=== PATIENT | male | born 1960 | race Caucasian/White ===

== ENCOUNTER 2017-05-02 19:24 | Emergency (ER) | payer OTHER ==
[~2017-05-02] VITALS: Ht 180.3 cm; Wt 95.5 kg
[~2017-05-02 19:24] MED LIST: AZULFIDINE500 MG/TAB PO; COUMADIN 3MG3 MG/TAB; COUMADIN 3MG3 MG/TAB PO; COUMADIN4 MG PO; COZAAR100 MG PO; LIALDA 1.2 GM1.2 GM PO; NO HOME MEDICATIONS; NORCO 325 MG-7.1 TAB PO; SULFAZINE EC500 MG PO
[2017-05-02 19:34] VITALS: TEMP 99.2
[2017-05-02] MEDS ORDERED: CELEXA40 MG PO (19:38)
[2017-05-02] MEDS ORDERED: AMBIEN 5MG TABLE5 MG PO (19:38)
[2017-05-02] MEDS ORDERED: XARELTO20 MG PO (19:38)
[2017-05-02] MEDS ORDERED: LIPITOR 10MG10 MG PO (19:38)
[2017-05-02 22:33] LABS: BASO # 0.1 (0.0-0.2); BASO % 0.8 % (0.0-2.0); EOS # 0.2 (0.0-0.7); EOS % 2.2 % (0-4.0); GRAN # 4.9 (1.4-6.5); GRAN % 61.9 % (42.2-75.2); HEMATOCRIT 42.5 % (42.0-52.0); HEMOGLOBIN 15.2 g/dl (13.5-18.0); LYMPH # 1.7 (1.2-3.4); MEAN CELL VOLUME 90 fl (80.0-100.0); MEAN CORPUSCULAR HEMOGLOBIN 32 pg (27.0-31.0); MEAN CORPUSCULAR HGB CONC 36 g/dl (33.0-37.0); MEAN PLATELET VOLUME 10.6 fl (7.4-10.4); MONO % 12.2 % (1.7-9.3); PLATELET COUNT 225 K/mm3 (130-400); RED BLOOD COUNT 4.72 M/mm3 (4.20-5.60); WHITE BLOOD COUNT 7.9 K/mm3 (4.8-10.8)
[2017-05-02 22:36] LABS: INR 1.4 (0.8-3.0); PROTHROMBIN TIME 15.9 SECONDS (9.7-12.8)
[2017-05-02 22:38] LABS: PARTIAL THROMBOPLASTIN TIME 35.3 SECONDS (26.0-37.0)
[2017-05-02 23:15] LABS: ADJUSTED CALCIUM 9.3 mg/dL (8.4-10.2); ALBUMIN 4.4 gm/dL (3.5-5.0); BILIRUBIN,TOTAL 1.6 mg/dL (0.0-1.0); CALCIUM 9.6 mg/dL (8.4-10.2); CREATININE, serum 1.16 mg/dL (0.66-1.25); POTASSIUM 3.4 mmol/L (3.4-5.0)
[2017-05-02 23:16] LABS: COLLECTION METHOD CLEAN CATCH
[2017-05-02 23:29] LABS: MUCOUS Present /lpf; PH 5 (5-8); SQUAMOUS EPITHELIAL None Seen /hpf; URINE APPEARANCE Clear; URINE BACTERIA None Seen /hpf; URINE BILIRUBIN Negative (NEGATIVE); URINE BLOOD 1+ (NEGATIVE); URINE COLOR Yellow; URINE GLUCOSE Negative (NEGATIVE); URINE KETONE Negative (NEGATIVE); URINE LEUKOCYTE ESTERASE Negative (NEGATIVE); URINE PROTEIN(semi-quant) Negative (NEGATIVE); URINE RBC 0-2 /hpf; URINE UROBILINOGEN Negative (NEGATIVE); URINE WBC 0-2 /hpf
[2017-05-02] MEDS ORDERED: ZOFRAN 4MG T4 MG/TAB PO (23:57)
[2017-05-02] MEDS ORDERED: NORCO 325 MG-51 TAB PO (23:57)
[2017-05-02] MEDS ORDERED: CIPRO 500MG TA500 MG PO (23:57)
[2017-05-02] MEDS ORDERED: FLAGYL500 MG PO (23:57)
[2017-05-03 00:30] VITALS: BP 136/61; PULSE 77
== END 2017-05-03 00:32 | disposition home or self-care (01) ==
LOC: COL.ER 19:24
PROVIDERS: Emergency Medicine
DX: K52.9 Noninfective gastroenteritis and colitis, unspecified (principal); I10 Essential (primary) hypertension; E78.5 Hyperlipidemia, unspecified; Z86.711 Personal history of pulmonary embolism; Z86.718 Personal history of other venous thrombosis and embolism; Z98.890 Other specified postprocedural states; Z79.01 Long term (current) use of anticoagulants
CPT/HCPCS: J2765; J3010; J7030; Q9967

== ENCOUNTER → 2018-09-09 | Outpatient (CLI) | payer OTHER ==
[~2018-09-09] MED LIST changes: +AMBIEN 5MG TABLE5 MG PO; +CELEXA40 MG PO; +CIPRO 500MG TA500 MG PO; +FLAGYL500 MG PO; +LIPITOR 10MG10 MG PO; +NORCO 325 MG-51 TAB PO; +XARELTO20 MG PO; +ZOFRAN 4MG T4 MG/TAB PO
== END ==
LOC: COL.RAD 08:26
DX: S46.212A Strain of muscle, fascia and tendon of other parts of biceps, left arm, initial encounter (principal); M19.012 Primary osteoarthritis, left shoulder; M75.112 Incomplete rotator cuff tear or rupture of left shoulder, not specified as traumatic

== ENCOUNTER → 2018-11-09 | Outpatient (CLI) | payer OTHER | LOC: COL.RAD 14:15 | DX: R04.2 Hemoptysis (principal) | CPT/HCPCS: Q9967 ==

== ENCOUNTER 2019-08-17 13:08 | Observation (INO) | payer OTHER ==
[~2019-08-17] VITALS: Ht 177.8 cm; Wt 106.9 kg
[2019-08-17 13:54] LABS: BASO % 0.3 % (0.0-2.0); EOS # 0.1 (0.0-0.7); EOS % 0.9 % (0-4.0); GRAN # 5.4 (1.4-6.5); GRAN % 58.6 % (42.2-75.2); HEMATOCRIT 44.8 % (42.0-52.0); HEMOGLOBIN 15.6 g/dl (13.5-18.0); LYMPH # 2.9 (1.2-3.4); LYMPH % 30.9 % (20.0-51.0); MEAN CELL VOLUME 90 fl (80.0-100.0); MEAN CORPUSCULAR HEMOGLOBIN 31 pg (27.0-31.0); MEAN CORPUSCULAR HGB CONC 35 g/dl (33.0-37.0); MEAN PLATELET VOLUME 10.5 fl (7.4-10.4); MONO # 0.8 (0.1-0.6); MONO % 8.9 % (1.7-9.3); PLATELET COUNT 241 K/mm3 (130-400); RED BLOOD COUNT 4.99 M/mm3 (4.20-5.60); REDCELL DISTRIBUTION WIDTH-CV 12.1 % (11.5-14.5)
[2019-08-17 14:02] LABS: ALBUMIN 5.1 gm/dL (3.5-5.0); BILIRUBIN,TOTAL 2.3 mg/dL (0.0-1.0); CALCIUM 9.9 mg/dL (8.4-10.2); CREATININE, serum 1.5 (0.66-1.25); TOTAL PROTEIN 8.8 gm/dL (6.4-8.2)
[2019-08-17 15:26] LABS: COLLECTION METHOD CLEAN CATCH
[2019-08-17 15:46] LABS: MUCOUS Present /lpf; PH 5 (5-8); SQUAMOUS EPITHELIAL 0-2 /hpf; URINE APPEARANCE Cloudy; URINE BACTERIA Rare /hpf; URINE BILIRUBIN Negative (NEGATIVE); URINE BLOOD 3+ (NEGATIVE); URINE COLOR Yellow; URINE GLUCOSE Negative (NEGATIVE); URINE KETONE Negative (NEGATIVE); URINE LEUKOCYTE ESTERASE Negative (NEGATIVE); URINE NITRATE Negative (NEGATIVE); URINE PROTEIN(semi-quant) 1+ (NEGATIVE); URINE UROBILINOGEN Negative (NEGATIVE)
[2019-08-17 15:55] LABS: URINE RBC >50 /hpf
[2019-08-17 17:39] VITALS: BP 135/79; PULSE 66; TEMP 98.4
[2019-08-17] MEDS ORDERED: BRINTELLIX20 (17:47)
[2019-08-17] MEDS ORDERED: LOSARTAN POTASSIUM/H (17:49)
[2019-08-17] MEDS ORDERED: XANAX 1MG1 MG PO (17:50)
[2019-08-17] MEDS ORDERED: ZYPREXA 5MG5 MG PO (17:50)
--- NOTE | 2019-08-17 19:08 | NUR ---
REPORT TO ANGEL SMITH.
[2019-08-17 20:02] VITALS: BP 120/76; PULSE 57; TEMP 98.2
[2019-08-17] MEDS ORDERED: HYZAAR 25 MG-101 TAB PO (22:22)
[2019-08-17] MEDS ORDERED: ZYPREXA ZYD10 MG/TAB PO (22:51)
[2019-08-18] VITALS (10 sets, daily range): BP systolic 92–154; BP diastolic 51–93; PULSE 55–87; TEMP 98.1–98.8
--- NOTE | 2019-08-18 07:50 | NUR ---
Patient up, independent in room. rounded. We discussed lab results from yesterday. K+ replaced & toradol on hold per kidney function. Patient remains Npo, he denies nausea. Potential to go to the [facility] this [facility]. Currently patient reports minimal pain. Will monitor.
--- NOTE | 2019-08-18 09:57 | NUR ---
CRISTÓBAL met with the patient and his two children to discuss discharge plan. The patient lives in [place] with his , Marian ([id number]#[phone]), and their two children. He reports independence with ADLs and does not have any DME. The patient's PCP is Dr. Nina Carrizales and he receives his medications at [facility]. He reports no difficulties obtaining his meds. The patient was not sure if he has advanced directives completed, but he was interested in obtaining a form for DPOA-HC. CRISTÓBAL provided. The patient states that if he does have them completed, that his is his DPOA-HC. The patient plans to return home with his family upon discharge. No additional needs at this time.
--- NOTE | 2019-08-18 10:10 | NUR ---
Patient continues to deny pain. working on his laptop. Remains npo, denies nausea
--- NOTE | 2019-08-18 11:58 | NUR ---
First visit from the fixer boarding room. [employer] prayed with patient and family. No needs right now.
--- NOTE | 2019-08-18 12:28 | NUR ---
Initial visit; Patient thanked Pharmacy Consultant for offering spiritual care, especially encouragement and prayer.
--- NOTE | 2019-08-18 14:00 | NUR ---
rounded. Consent obtained. Ivf to gravity. Patient to [facility]
--- NOTE | 2019-08-18 17:48 | NUR ---
Patient has returned from the [facility]. Ready for discharge. He has voided, blood tinged urine. Tolerated dinner tray. Vitals stable. Will work on dischare paperwork
--- NOTE | 2019-08-18 18:04 | NUR ---
Patient ready for discharge. All discharge paperwork reviewed. Home medication list reviewed. He is aware of the importance of calling for a follow up appt for stent removal. Iv Dc. He tolerated dinner. Voided. Will be wheeled out with all belongigns, his to take him home.
== END 2019-08-18 18:06 | disposition home or self-care (01) ==
LOC: COL.ER 13:08 → SURG 16:18
PROVIDERS: Nurse Practitioner; ADMIT Urology
DX: N20.1 Calculus of ureter (principal); E87.6 Hypokalemia; E11.9 Type 2 diabetes mellitus without complications; I10 Essential (primary) hypertension; G47.33 Obstructive sleep apnea (adult) (pediatric); Z86.718 Personal history of other venous thrombosis and embolism; Z79.899 Other long term (current) drug therapy; Z79.01 Long term (current) use of anticoagulants; Z88.8 Allergy status to other drugs, medicaments and biological substances; Z87.442 Personal history of urinary calculi
CPT/HCPCS: A4216; C1769; C2617; G0378; J0360; J0696; J1170; J1885; J1940; J2175; J2250; J2405; J2704; J3010; J3480; J7030; Q9967

== ENCOUNTER → 2020-11-13 | Outpatient (CLI) | payer BC ==
[~2020-11-13] MED LIST changes: +AMOXICILLIN 8751 TAB PO; +ASACOL HD800 MG PO; +BRINTELLIX20; +DESYREL 100MG100 MG PO; +HYZAAR 25 MG-101 TAB PO; +LIPITOR20 MG PO; +LOSARTAN POTASSIUM/H; +ULTRAM 50MG TAB50 MG PO; +UROCIT-K15 MEQ PO; +XANAX 1MG1 MG PO; +ZYLOPRIM 300MG300 MG PO; +ZYPREXA 5MG5 MG PO; +ZYPREXA ZYD10 MG/TAB PO
== END ==
LOC: COL.RAD 07:18
DX: N39.43 Post-void dribbling (principal); N20.0 Calculus of kidney

== ENCOUNTER 2020-12-12 19:01 | Emergency (ER) | payer BC ==
[~2020-12-12] VITALS: Ht 180.3 cm; Wt 104.5 kg
[~2020-12-12 19:01] MED LIST changes: -AMOXICILLIN 8751 TAB PO; -ASACOL HD800 MG PO; -DESYREL 100MG100 MG PO; -LIPITOR20 MG PO; -ULTRAM 50MG TAB50 MG PO; -UROCIT-K15 MEQ PO; -ZYLOPRIM 300MG300 MG PO
[2020-12-12] MEDS ORDERED: ASACOL HD800 MG PO (19:43)
[2020-12-12] MEDS ORDERED: LIPITOR20 MG PO (19:44)
[2020-12-12] MEDS ORDERED: ZYLOPRIM 300MG300 MG PO (19:44)
[2020-12-12] MEDS ORDERED: DESYREL 100MG100 MG PO (19:45)
[2020-12-12] MEDS ORDERED: ULTRAM 50MG TAB50 MG PO (19:45)
[2020-12-12] MEDS ORDERED: UROCIT-K15 MEQ PO (19:46)
[2020-12-12 19:54] LABS: BASO % 0.3 % (0.0-2.0); EOS # 0.1 (0.0-0.7); GRAN # 7.2 (1.4-6.5); GRAN % 73.7 % (42.2-75.2); HEMATOCRIT 43.1 % (42.0-52.0); HEMOGLOBIN 14.9 g/dl (13.5-18.0); LYMPH # 1.6 (1.2-3.4); LYMPH % 15.9 % (20.0-51.0); MEAN CELL VOLUME 87 fl (80.0-100.0); MEAN CORPUSCULAR HEMOGLOBIN 30 pg (27.0-31.0); MEAN CORPUSCULAR HGB CONC 35 g/dl (33.0-37.0); MEAN PLATELET VOLUME 10.8 fl (7.4-10.4); MONO # 0.9 (0.1-0.6); MONO % 8.7 % (1.7-9.3); PLATELET COUNT 184 K/mm3 (130-400); RED BLOOD COUNT 4.94 M/mm3 (4.20-5.60); REDCELL DISTRIBUTION WIDTH-CV 13.8 % (11.5-14.5)
[2020-12-12 20:08] LABS: ALANINE AMINOTRANSFERASE 28 U/L (4-49); ALBUMIN 4.7 gm/dL (3.5-5.0); ALKALINE PHOSPHATASE 103 U/L (50-136); ANION GAP 11 mmol/L (7-16); AST,SGOT 38 U/L (15-37); BILIRUBIN,TOTAL 3.1 mg/dL (0.0-1.0); BLOOD UREA NITROGEN 20 mg/dL (9-20); CALCIUM 9.6 mg/dL (8.4-10.2); CARBON DIOXIDE 21 mmol/L (22-30); CHLORIDE 102 mmol/L (98-107); CREATININE, serum 1.44 (0.66-1.25); GLUCOSE 122 mg/dL (74-106); POTASSIUM 3.9 mmol/L (3.4-5.0); SODIUM 134 mmol/L (137-145); TOTAL PROTEIN 9.3 gm/dL (6.4-8.2)
[2020-12-12 20:26] LABS: TROPONIN-I < 0.012 ng/mL (0.000-0.035)
[2020-12-13] MEDS ORDERED: NORCO 325 MG-51 TAB PO (00:22)
[2020-12-13] MEDS ORDERED: AMOXICILLIN 8751 TAB PO (00:22)
[2020-12-13 01:28] VITALS: BP 118/71; PULSE 78; TEMP 99
== END 2020-12-13 01:30 | disposition home or self-care (01) ==
LOC: COL.ER 19:01
PROVIDERS: Personal Emergency Response Attendant
DX: R07.89 Other chest pain (principal); I48.91 Unspecified atrial fibrillation; Z86.711 Personal history of pulmonary embolism; Z79.01 Long term (current) use of anticoagulants; Z86.718 Personal history of other venous thrombosis and embolism; Z20.822 Contact with and (suspected) exposure to COVID-19
CPT/HCPCS: J0456; J0696; J2270; J2405; J7030; J7050; Q9967

== ENCOUNTER 2024-02-06 10:51 | Day surgery (SDC) | payer BC ==
[~2024-02-06 10:51] MED LIST changes: +AMOXICILLIN 8751 TAB PO; +ASACOL HD800 MG PO; +DESYREL 100MG100 MG PO; +LIPITOR20 MG PO; +LR 1,000 ML IV SCH; +TAMBOCOR 1100 MG/TAB PO; +TOPROL XL 25MG25 MG PO; +ULTRAM 50MG TAB50 MG PO; +UROCIT-K 1010 MEQ PO; +ZYLOPRIM 300MG300 MG PO
[2024-02-06] MEDS ORDERED: COLESTID 1GM1 G PO (11:39)
[2024-02-06] MEDS ORDERED: AZULFIDINE500 MG/TAB PO (11:42)
[2024-02-06] MEDS ORDERED: PRILOSEC 20MG20 MG PO (11:51)
[2024-02-06 12:16] LABS: BASO % 0.3 % (0.0-2.0); EOS # 0.1 K/mm3 (0.0-0.7); EOS % 0.8 % (0.0-4.0); GRAN # 3.9 K/mm3 (1.4-6.5); GRAN % 61.4 % (42.2-75.2); HEMATOCRIT 42.4 % (42.0-52.0); HEMOGLOBIN 14.8 g/dl (13.5-18.0); LYMPH # 1.8 K/mm3 (1.2-3.4); LYMPH % 29.1 % (20.0-51.0); MEAN CELL VOLUME 92 fl (80.0-100.0); MEAN CORPUSCULAR HEMOGLOBIN 32 pg (27-31); MEAN CORPUSCULAR HGB CONC 35 g/dl (33.0-37.0); MONO # 0.5 K/mm3 (0.1-0.6); MONO % 8.1 % (1.7-9.3); PLATELET COUNT 166 K/mm3 (130-400); RED BLOOD COUNT 4.59 M/mm3 (4.20-5.60); REDCELL DISTRIBUTION WIDTH-CV 12.7 % (11.5-14.5)
[2024-02-06 12:25] VITALS: BP 124/83; PULSE 64; TEMP 98.4
[2024-02-06] MEDS ORDERED: Lidocaine PF 1% (10 MG/ML) 5 ML VIAL ONE (12:37)
[2024-02-06 12:39] LABS: INR 1.3 (0.8-3.0); PROTHROMBIN TIME 14.3 SECONDS (9.7-12.8)
[2024-02-06 12:52] LABS: CALCIUM 8.9 mg/dL (8.4-10.2); CREATININE, serum 1.09 mg/dL (0.72-1.25); POTASSIUM 3.8 mEq/L (3.5-4.5)
[2024-02-06 13:45] VITALS: BP 108/76; PULSE 68
--- NOTE | 2024-02-06 13:46 | NUR ---
PATIENT ALERT AND ORIENTED, VSS. PLAN OF CARE REVIEWED WITH SPOUSE VIA PHONE CALL. PATIENT DENIES NEEDS, PRODUCTIVE COUGH NOTED WITH CLEARING OWN SECRETIONS. BED TO LOWEST POSITION, X3 BEDRAILS IN PLACE, CALL LIGHT WITHIN REACH. TRANSFER OF CARE REPORT TO SARAH MCFARLAND.
[2024-02-06 14:00] VITALS: BP 111/80; PULSE 65
[2024-02-06 14:15] VITALS: BP 111/81; PULSE 58
[2024-02-06 14:30] VITALS: BP 111/69; PULSE 63
--- NOTE | 2024-02-06 14:37 | NUR ---
DC instructions reviewed with pt, he expresses understanding. He has rested comfortably during recovery period. He drank cup of water, no issues swallowing. He is steady on feet in room. IV DC'd, site wrapped with coban. He is assisted out to 's car by wheelchair with belongings. Belongings sent wt pt.
== END 2024-02-06 14:35 | disposition home or self-care (01) ==
LOC: COL.CAR 10:51
PROVIDERS: Internal Medicine Cardiovascular Disease
DX: I48.0 Paroxysmal atrial fibrillation (principal); I10 Essential (primary) hypertension; E66.9 Obesity, unspecified; G47.33 Obstructive sleep apnea (adult) (pediatric); R04.2 Hemoptysis; E78.2 Mixed hyperlipidemia; I49.3 Ventricular premature depolarization; I82.5Z1 Chronic embolism and thrombosis of unspecified deep veins of right distal lower extremity; I27.82 Chronic pulmonary embolism; Z79.01 Long term (current) use of anticoagulants; Z79.899 Other long term (current) drug therapy; Z68.34 Body mass index [BMI] 34.0-34.9, adult; Z99.81 Dependence on supplemental oxygen; Z98.890 Other specified postprocedural states
CPT/HCPCS: J2704; J7120